=== PATIENT | male | born 1955 ===

== ENCOUNTER → 2023-07-28 | Emergency (ER) | payer OTHER ==
[~2023-07-28] MED LIST: FOLIC ACID 1 MG in NA CHLORIDE 0.9% 50 ML IV ONE; NA CHLORIDE 0.9% 1,000 ML ONE
--- OUTSIDE RECORDS SUMMARY | 2023-07-28 11:54 | XMS REPORT | Continuity of Care Document ---
Author Name Unknown Address [address] [place] [address] [address]. [address] [place] [address] [facility] Address [address] [facility] [address] [place] [address] Care Team Providers Care Supervisor [employer] Name Role Phone Ivett Ramachandran Attending Clinician Unavailab le Tejal Attending Clinician Unavail able Jenniffer Smalls Attending Clinician Unavailable Jenniffer Smalls Attending Clinician [phone] Tejal Admitting Clinician Unavail able Payers Payer Name Policy Type Policy Number Effective Date Expirati on Date Source [place]: [employer] [id number] 2018 00:00:00 [facility] [id number] 2020 00:00:00 Problems Condition Name Condition Details Condition Category Status Onset Date Resolution Date Last Treatment Date Treating Clinician Comments Source Chronic postoperat roderick pain Chronic Postoperat roderick Pain Problem Active 05-03 00:00: 00 [facility] Osteoarthr itis of left hip joint Osteoarthr itis of Left Hip Joint Problem Active 03-15 00:00: 00 [facility] Low back pain Low Back Pain Problem Active 03-14 00:00: 00 [facility] Pain of left hip joint Pain of Left Hip Joint Problem Active 03-14 00:00: 00 [facility] Pain in right hip joint Pain in Right Hip Joint Problem Active 02-09 00:00: 00 [facility] Pain of left knee joint Pain of Left Knee Joint Problem Active 02-09 00:00: 00 [facility] Pain of right knee joint Pain of Right Knee Joint Problem Active 02-09 00:00: 00 [facility] Allergies, Adverse Reactions, Alerts Allergy Name Allergy Type Status Severity Reaction(s) Onset Date Inactive Date Treating Clinician Comments Source No Known Allergie s DA Active U 02-09 00:00: 00 [facility] Medications Ordered Medication Name Filled Medication Name Start Date Stop Date Current Medication? Ordering Clinician Indication Dosage Frequency Signature (SIG) Comments Components Source amlodipine 5 mg tablet TAKE 1 TABLET BY MOUTH EVERY DAY amlodipine 5 mg tablet TAKE 1 TABLET BY MOUTH EVERY DAY No amlodipine 5 mg tablet TAKE 1 TABLET BY MOUTH EVERY DAY [facility] azithromyci n 250 mg tablet TAKE 2 TABLETS BY MOUTH FOR 1 DAY THEN TAKE 1 TABLET BY MOUTH DAILY FOR 4 DAYS azithromyci n 250 mg tablet TAKE 2 TABLETS BY MOUTH FOR 1 DAY THEN TAKE 1 TABLET BY MOUTH DAILY FOR 4 DAYS No azithromyc in 250 mg tablet TAKE 2 TABLETS BY MOUTH FOR 1 DAY THEN TAKE 1 TABLET BY MOUTH DAILY FOR 4 DAYS [facility] celecoxib 200 mg capsule TAKE 1 CAPSULE BY MOUTH EVERY DAY NEEDED celecoxib 200 mg capsule TAKE 1 CAPSULE BY MOUTH EVERY DAY NEEDED No celecoxib 200 mg capsule TAKE 1 CAPSULE BY MOUTH EVERY DAY NEEDED [facility] cephalexin 500 mg capsule TAKE 1 CAPSULE BY MOUTH EVERY DAY cephalexin 500 mg capsule TAKE 1 CAPSULE BY MOUTH EVERY DAY No cephalexin 500 mg capsule TAKE 1 CAPSULE BY MOUTH EVERY DAY [facility] irbesartan 300 mg tablet irbesartan 300 mg tablet No irbesartan 300 mg tablet [facility] meloxicam 15 mg tablet TAKE 1 TABLET BY MOUTH DAILY meloxicam 15 mg tablet TAKE 1 TABLET BY MOUTH DAILY No meloxicam 15 mg tablet TAKE 1 TABLET BY MOUTH DAILY [facility] methylpredn isolone 4 mg tablets in a dose pack FOLLOW PACKAGE DIRECTIONS methylpredn isolone 4 mg tablets in a dose pack FOLLOW PACKAGE DIRECTIONS No methylpred nisolone 4 mg tablets in a dose pack FOLLOW PACKAGE DIRECTIONS [facility] nystatin 100,000 unit/gram topical cream APPLY TOPICALLY TO THE AFFECTED AREA TWICE DAILY nystatin 100,000 unit/gram topical cream APPLY TOPICALLY TO THE AFFECTED AREA TWICE DAILY No nystatin 100,000 unit/gram topical cream APPLY TOPICALLY TO THE AFFECTED AREA TWICE DAILY [facility] rosuvastati n 20 mg tablet TAKE 1 TABLET BY MOUTH EVERY DAY rosuvastati n 20 mg tablet TAKE 1 TABLET BY MOUTH EVERY DAY No rosuvastat in 20 mg tablet TAKE 1 TABLET BY MOUTH EVERY DAY [facility] testosteron e cypionate 200 mg/mL intramuscul ar oil testosteron e cypionate 200 mg/mL intramuscul ar oil No testostero ne cypionate 200 mg/mL intramuscu lar oil [facility] tramadol 50 mg tablet TAKE 1 TABLET BY MOUTH THREE TIMES DAILY NEEDED tramadol 50 mg tablet TAKE 1 TABLET BY MOUTH THREE TIMES DAILY NEEDED No tramadol 50 mg tablet TAKE 1 TABLET BY MOUTH THREE TIMES DAILY NEEDED [facility] acetaminoph en 500 mg tablet Take 2 tablet(s) EVERY 8 HOURS by oral route. acetaminoph en 500 mg tablet Take 2 tablet(s) EVERY 8 HOURS by oral route. No acetaminop hen 500 mg tablet Take 2 tablet(s) EVERY 8 HOURS by oral route. [facility] amlodipine 5 mg tablet TAKE 1 TABLET BY MOUTH EVERY DAY amlodipine 5 mg tablet TAKE 1 TABLET BY MOUTH EVERY DAY No amlodipine 5 mg tablet TAKE 1 TABLET BY MOUTH EVERY DAY [facility] amoxicillin 875 mg-potassiu m clavulanate 125 mg tablet TAKE 1 TABLET BY MOUTH EVERY MORNING AND 1 TABLET EVERY EVENING FOR 7 DAYS amoxicillin 875 mg-potassiu m clavulanate 125 mg tablet TAKE 1 TABLET BY MOUTH EVERY MORNING AND 1 TABLET EVERY EVENING FOR 7 DAYS No amoxicilli n 875 mg-potassi um clavulanat e 125 mg tablet TAKE 1 TABLET BY MOUTH EVERY MORNING AND 1 TABLET EVERY EVENING FOR 7 DAYS [facility] aspirin 81 mg tablet,yrn yed release TAKE 1 TABLET BY MOUTH TWICE DAILY aspirin 81 mg tablet,yrn yed release TAKE 1 TABLET BY MOUTH TWICE DAILY No aspirin 81 mg tablet,del ayed release TAKE 1 TABLET BY MOUTH TWICE DAILY [facility] azelastine 137 mcg (0.1 %) nasal spray aerosol USE 1 SPRAY IN EACH NOSTRIL IN THE MORNING AND IN THE EVENING DIRECTED azelastine 137 mcg (0.1 %) nasal spray aerosol USE 1 SPRAY IN EACH NOSTRIL IN THE MORNING AND IN THE EVENING DIRECTED No azelastine 137 mcg (0.1 %) nasal spray aerosol USE 1 SPRAY IN EACH NOSTRIL IN THE MORNING AND IN THE EVENING DIRECTED [facility] azithromyci n 250 mg tablet TAKE 2 TABLET BY MOUTH ON DAY 1 THEN TAKE 1 TABLET BY MOUTH EVERY DAY FOR DAYS 2 -5 azithromyci n 250 mg tablet TAKE 2 TABLET BY MOUTH ON DAY 1 THEN TAKE 1 TABLET BY MOUTH EVERY DAY FOR DAYS 2 -5 No azithromyc in 250 mg tablet TAKE 2 TABLET BY MOUTH ON DAY 1 THEN TAKE 1 TABLET BY MOUTH EVERY DAY FOR DAYS 2 -5 [facility] benzonatate 100 mg capsule TAKE 2 CAPSULES BY MOUTH EVERY 8 HOURS NEEDED FOR COUGH benzonatate 100 mg capsule TAKE 2 CAPSULES BY MOUTH EVERY 8 HOURS NEEDED FOR COUGH No benzonatat e 100 mg capsule TAKE 2 CAPSULES BY MOUTH EVERY 8 HOURS NEEDED FOR COUGH [facility] benzonatate 200 mg capsule TAKE 1 CAPSULE BY MOUTH THREE TIMES DAILY NEEDED FOR COUGH benzonatate 200 mg capsule TAKE 1 CAPSULE BY MOUTH THREE TIMES DAILY NEEDED FOR COUGH No benzonatat e 200 mg capsule TAKE 1 CAPSULE BY MOUTH THREE TIMES DAILY NEEDED FOR COUGH [facility] celecoxib 200 mg capsule TAKE 1 CAPSULE BY MOUTH EVERY DAY NEEDED celecoxib 200 mg capsule TAKE 1 CAPSULE BY MOUTH EVERY DAY NEEDED No celecoxib 200 mg capsule TAKE 1 CAPSULE BY MOUTH EVERY DAY NEEDED [facility] cephalexin 500 mg capsule TAKE 1 CAPSULE BY MOUTH EVERY DAY cephalexin 500 mg capsule TAKE 1 CAPSULE BY MOUTH EVERY DAY No cephalexin 500 mg capsule TAKE 1 CAPSULE BY MOUTH EVERY DAY [facility] codeine 10 mg-guaifene sin 100 mg/5 mL oral liquid TAKE 5 ML BY MOUTH EVERY 6 HOURS NEEDED FOR COUGH codeine 10 mg-guaifene sin 100 mg/5 mL oral liquid TAKE 5 ML BY MOUTH EVERY 6 HOURS NEEDED FOR COUGH No codeine 10 mg-guaifen esin 100 mg/5 mL oral liquid TAKE 5 ML BY MOUTH EVERY 6 HOURS NEEDED FOR COUGH [facility] doxycycline hyclate 100 mg capsule Take 1 capsule twice a day by oral route for 7 days. doxycycline hyclate 100 mg capsule Take 1 capsule twice a day by oral route for 7 days. No doxycyclin e hyclate 100 mg capsule Take 1 capsule twice a day by oral route for 7 days. [facility] fluticasone propionate 50 mcg/actuati on nasal spray,suspe nsion SHAKE LIQUID AND USE 2 SPRAYS IN EACH NOSTRIL IN THE MORNING fluticasone propionate 50 mcg/actuati on nasal spray,suspe nsion SHAKE LIQUID AND USE 2 SPRAYS IN EACH NOSTRIL IN THE MORNING No fluticason e propionate 50 mcg/actuat ion nasal spray,susp ension SHAKE LIQUID AND USE 2 SPRAYS IN EACH NOSTRIL IN THE MORNING [facility] irbesartan 300 mg tablet TAKE 1 TABLET BY MOUTH EVERY DAY irbesartan 300 mg tablet TAKE 1 TABLET BY MOUTH EVERY DAY No irbesartan 300 mg tablet TAKE 1 TABLET BY MOUTH EVERY DAY [facility] meloxicam 15 mg tablet Take 1 tablet every day by oral route with meals for 30 days. meloxicam 15 mg tablet Take 1 tablet every day by oral route with meals for 30 days. No meloxicam 15 mg tablet Take 1 tablet every day by oral route with meals for 30 days. [facility] methylpredn isolone 4 mg tablets in a dose pack FOLLOW PACKAGE DIRECTIONS methylpredn isolone 4 mg tablets in a dose pack FOLLOW PACKAGE DIRECTIONS No methylpred nisolone 4 mg tablets in a dose pack FOLLOW PACKAGE DIRECTIONS [facility] nystatin 100,000 unit/gram topical cream APPLY TOPICALLY TO THE AFFECTED AREA TWICE DAILY nystatin 100,000 unit/gram topical cream APPLY TOPICALLY TO THE AFFECTED AREA TWICE DAILY No nystatin 100,000 unit/gram topical cream APPLY TOPICALLY TO THE AFFECTED AREA TWICE DAILY [facility] oxycodone 5 mg tablet Take 1 tablet(s) EVERY 6-8 HOURS as needed for severe pain by oral route oxycodone 5 mg tablet Take 1 tablet(s) EVERY 6-8 HOURS as needed for severe pain by oral route No oxycodone 5 mg tablet Take 1 tablet(s) EVERY 6-8 HOURS as needed for severe pain by oral route [facility] polymyxin B sulfate 10,000 unit-trimet hoprim 1 mg/mL eye drops INSTILL 1 DROP IN BOTH EYES THREE TIMES DAILY FOR 7 DAYS polymyxin B sulfate 10,000 unit-trimet hoprim 1 mg/mL eye drops INSTILL 1 DROP IN BOTH EYES THREE TIMES DAILY FOR 7 DAYS No polymyxin B sulfate 10,000 unit-trime thoprim 1 mg/mL eye drops INSTILL 1 DROP IN BOTH EYES THREE TIMES DAILY FOR 7 DAYS [facility] prednisone 20 mg tablet TAKE 2 TABLETS BY MOUTH IN THE MORNING FOR 5 DAYS prednisone 20 mg tablet TAKE 2 TABLETS BY MOUTH IN THE MORNING FOR 5 DAYS No prednisone 20 mg tablet TAKE 2 TABLETS BY MOUTH IN THE MORNING FOR 5 DAYS [facility] promethazin e-DM 6.25 mg-15 mg/5 mL oral syrup TAKE 5 ML BY MOUTH FOUR TIMES DAILY NEEDED FOR COUGH promethazin e-DM 6.25 mg-15 mg/5 mL oral syrup TAKE 5 ML BY MOUTH FOUR TIMES DAILY NEEDED FOR COUGH No promethazi ne-DM 6.25 mg-15 mg/5 mL oral syrup TAKE 5 ML BY MOUTH FOUR TIMES DAILY NEEDED FOR COUGH [facility] rosuvastati n 20 mg tablet TAKE 1 TABLET BY MOUTH EVERY DAY rosuvastati n 20 mg tablet TAKE 1 TABLET BY MOUTH EVERY DAY No rosuvastat in 20 mg tablet TAKE 1 TABLET BY MOUTH EVERY DAY [facility] rosuvastati n 40 mg tablet rosuvastati n 40 mg tablet No rosuvastat in 40 mg tablet [facility] testosteron e cypionate 200 mg/mL intramuscul ar oil testosteron e cypionate 200 mg/mL intramuscul ar oil No testostero ne cypionate 200 mg/mL intramuscu lar oil [facility] tizanidine 2 mg tablet TAKE 1 TABLET BY MOUTH EVERY 6 TO 8 HOURS NEEDED tizanidine 2 mg tablet TAKE 1 TABLET BY MOUTH EVERY 6 TO 8 HOURS NEEDED No tizanidine 2 mg tablet TAKE 1 TABLET BY MOUTH EVERY 6 TO 8 HOURS NEEDED [facility] tramadol 50 mg tablet Take 1 tablet every 6 hours by oral route as needed for 7 days. tramadol 50 mg tablet Take 1 tablet every 6 hours by oral route as needed for 7 days. No tramadol 50 mg tablet Take 1 tablet every 6 hours by oral route as needed for 7 days. [facility] Vital Signs Vital Name Observation Time Observation Value Comments S ource BMI (Body Mass Index) 2023-06-21 00:00:00 30.7 kg/m2 [facility] Height 2023-06-21 00:00:00 [facility] Weight 2023-06-21 00:00:00 220 [lb_av] [facility] Height 2022-02-09 00:00:00 71 [facility] BMI (Body Mass Index) 2022-02-09 00:00:00 29.6 kg/m2 [facility] Body Weight 2022-02-09 00:00:00 212 [lb_av] [facility] Procedures Procedure Date / Time Performed Performing Clinician Source XR, hip + pelvis, unilateral, 2 or 3 view 2023-06-21 00:00:00 [facility] XR, hip + pelvis, unilateral, 2 or 3 view 2023-05-22 00:00:00 [facility] Total Replacement of Left Hip Joint 2023-05-04 00:00:00 [facility] XR, hip + pelvis, unilateral, 2 or 3 view 2022-02-09 00:00:00 [facility] RADEX PELVIS 1/2 VIEWS 2022-02-09 00:00:00 [facility] Plan of Care Planned Activity Planned Date Details Comments Source Instructions [facility] Encounters Start Date/Time End Date/Time Encounter Type Admission Type Attending Clinicians Care Facility Care Department Encounter ID Source 2021-08-31 14:28:20 Outpatient Ivett Ramachand[facility] [id number] [facility] 2023-06-21 00:00:00 2023-06-21 00:00:00 Outpatient FOG_Pillo P[place] AO AO [id number] [facility] 2023-06-21 00:00:00 2023-06-21 00:00:00 Jenniffer Smalls MD: [address] [place] [address] , Ph. [phone] [facility] [place] [facility] [id number] [facility] 2023-05-22 00:00:00 2023-05-22 00:00:00 Jenniffer Smalls MD: [address] [place] [address] , Ph. [phone] [facility] [place] [facility] [place] [id number] [facility] 2023-04-30 00:00:00 2023-04-30 00:00:00 Outpatient FOG_Pillo Pagan [facility] A[facility] [id number] [facility] 2023-04-30 00:00:00 2023-04-30 00:00:00 Outpatient FOGAgustín Pagan [facility] A[facility] [id number] [facility] 2023-04-30 00:00:00 2023-04-30 00:00:00 Outpatient FOGAgustín Pagan [facility] A[facility]M [id number] [facility] 2023-04-30 00:00:00 2023-04-30 00:00:00 Outpatient FOG_Pillo Pagan [facility] A[facility] [id number] [facility] 2023-04-30 00:00:00 2023-04-30 00:00:00 Outpatient FOG_St[facility]_ Gregor_MD [facility]M AOSM [id number] [facility] 2023-04-30 00:00:00 2023-04-30 00:00:00 Outpatient [facility]OG[facility]_ Gregor_ [facility]M A[facility] [id number] [facility] 2023-04-30 00:00:00 2023-04-30 00:00:00 Outpatient [facility]_ Gregor_ [facility]M A[facility] [id number] [facility] 2023-04-30 00:00:00 2023-04-30 00:00:00 Outpatient FOG_[facility]_ Jamshid_ A[facility]M AOSM [id number] [facility] 2023-04-30 00:00:00 2023-04-30 00:00:00 Outpatient [facility]_ Oliveror_ AOSM AOSM [id number] [facility] 2023-03-15 16:53:00 2023-03-15 16:53:00 Outpatient Jenniffer Smalls [facility] [id number] [address] [place] [address] 2023-03-15 00:00:00 2023-03-15 00:00:00 Outpatient FOG_[facility]_ Jamshid_ AOSM AOSM [id number] [facility] 2022-02-09 03:13:00 2022-02-09 03:13:00 Outpatient FOG_Stocks_ Oliveror_ AOSM AOSM [id number] [facility] 2022-02-09 00:00:00 2022-02-09 00:00:00 Outpatient FOG_[facility]ocks_ Gregor_ A[facility]M AOSM [id number] [facility] 2022-02-09 00:00:00 2022-02-09 00:00:00 Outpatient FOG_Pillo Pagan AOSM AOSM [id number] [facility] 2022-02-09 00:00:00 2022-02-09 00:00:00 Jenniffer Smalls MD: [address] [place] [address] , Ph. [phone] [facility] [place] [facility] [id number] [facility] 2022-02-09 00:00:00 2022-02-09 00:00:00 Outpatient Jenniffer Smalls [facility] AO [id number] 2022-02-08 06:40:00 2022-02-08 06:40:00 Outpatient FOG_Pillo Pagan AOSM AOSM [id number] [facility] 2022-02-03 10:57:00 2022-02-03 10:57:00 Outpatient FOG_Pillo Pagna AOSM AOSM [id number] [facility] Results Test Description Test Time Test Comments Results Result Co mments Source
[2023-07-28 12:21] LABS: Absolute Lymphocytes (CBC) 2.8 K/uL (0.7-4.9); Hematocrit 47.5 % (39.6-49.0); Lymphocytes % 32.2 % (15.3-44.8); MCV 91.6 fL (80-100); MPV 7.8 fL (7.6-11.3); Platelets 190 thou/uL (152-406); RBC Red Blood Cell Count 5.18 M/uL (4.33-5.43)
[2023-07-28 12:32] LABS: Protime INR 1.05
[2023-07-28 12:39] LABS: ALT/SGPT 38 U/L (16-61); AST/SGOT 27 U/L (15-37); Albumin 3.7 g/dL (3.4-5.0); Alkaline Phosphatase 109 U/L (45-117); BUN Blood Urea Nitrogen 14 mg/dL (7-18); Bicarbonate 31 mEq/L (21-32); Bilirubin Direct 0.2 mg/dL (0-0.2); Bilirubin Indirect, Calculated 0.4 mg/dL (0.2-0.8); Bilirubin Total 0.6 mg/dL (0.2-1.0); Glomerular Filtration Rate 82 ml/min (=/>90); Glucose Level 110 mg/dL (74-106); Magnesium 2.2 mg/dL (1.6-2.4); NT PRO-BNP 57 pg/mL (<125); Potassium 4.1 mEq/L (3.5-5.1); Sodium Level 138 mEq/L (136-145); Troponin High Sensitivity 14.1 pg/mL (<58.9)
[2023-07-28 12:44] LABS: C-Reactive Protein < 2.90 mg/L (<3.00)
--- NOTE | 2023-07-28 13:23 | RAD REPORT ---
EXAM DESCRIPTION: Des Single View07/28/2023 12:24 pm CLINICAL HISTORY: Chest pain COMPARISON: 2011 FINDINGS: The lungs appear clear of acute infiltrate. The heart is mildly to moderately enlarged Postsurgical changes involve the chest
--- NOTE | 2023-07-28 13:54 | RAD REPORT ---
EXAM DESCRIPTION: CT - Head C Spine Mpr Wo Con - 07/28/2023 1:22 pm CLINICAL HISTORY: Numbness and dizziness COMPARISON: None. TECHNIQUE: Computed axial tomography of the head and cervical spine was obtained. Sagittal and coronal reconstruction was performed. All CT scans are performed using dose optimization technique as appropriate and may include automated exposure control or mA/KV adjustment according to patient size. FINDINGS: An intracranial bleed is not seen. The ventricles are normal in caliber. No significant hypodensity within the brain. An extra-axial fluid collection is not noted. Fluid within the maxillary and ethmoid sinuses may indicate acute sinusitis A cervical fracture is not visualized. No dislocation is noted. Spondylosis C3-4. Possible left lateral disc herniation. There appears to be soft tissue in the left neural foramina which is narrowed. Spondylosis C4-5 resulting in moderate narrowing of the right neural foramina Anterior fusion C5 through C7 by plate, screws and bone plugs. Spondylosis C5-6 resulting in moderate narrowing of the neural foramina bilaterally IMPRESSION: No acute intracranial abnormality is seen. Fluid within the maxillary and ethmoid sinuses may indicate acute sinusitis A cervical fracture is not visualized. Spondylosis C3-4. Possible left lateral disc herniation. There appears to be soft tissue in the left neural foramina which is narrowed. It is recommended that the patient have an MRI cervical spine with contrast for further evaluation Spondylosis C4-5 resulting in moderate right foraminal stenosis Spondylosis C5-6 resulting in moderate bilateral foraminal stenosis
[2023-07-28 14:04] LABS: Specific Gravity 1.023 (1.005-1.030); Urine Bacteria None Seen /HPF (<20); Urine Bilirubin NEGATIVE (Negative); Urine Blood Negative (Negative); Urine Clarity Clear (Clear); Urine Color Light-Yellow (Yellow); Urine Glucose NEGATIVE (Negative); Urine Protein NEGATIVE (Negative); Urine RBC <5 /HPF (None Seen); Urine Urobilinogen Normal (Normal)
--- NOTE | 2023-07-28 14:05 | RAD REPORT ---
EXAM DESCRIPTION: Anna Angio07/28/2023 1:23 pm CLINICAL HISTORY: Numbness COMPARISON: None TECHNIQUE: 100 cc Isovue [address] angiogram of the neck was obtained. 3D MIPS reconstruction performed. All CT scans are performed using dose optimization technique as appropriate and may include automated exposure control or mA/KV adjustment according to patient size. FINDINGS: Mild plaque is present within common carotid, internal carotid and external carotid arteri es bilaterally Portions of the proximal vertebral arteries are not well opacified. Limited evaluation left subclavian artery No dissection is seen. No high-grade stenosis IMPRESSION: Mild plaque within the carotid and vertebral arteries Nascet crieria Mild stenosis 0 to 49 % Moderate stenosis 50-69% Severe stenosis 70-99%
--- NOTE | 2023-07-28 14:05 | RAD REPORT ---
EXAM DESCRIPTION: CTHead angio07/28/2023 1:24 pm CLINICAL HISTORY: Numbness COMPARISON: None TECHNIQUE: 100 cc Isovue [address] angiogram of the head was obtained. 3D MIPS reconstruction performed. All CT scans are performed using dose optimization technique as appropriate and may include automated exposure control or mA/KV adjustment according to patient size. FINDINGS: The basilar, anterior cerebral, middle cerebral and posterior cerebral arteries do not dem onstrate a significant stenosis Mild calcified plaque distal internal carotid arteries An aneurysm is not seen origin right posterior cerebral artery No large vessel occlusion IMPRESSION: No significant abnormality is displayed
--- NOTE | 2023-07-28 15:21 | EDPHYS ---
Physician Documentation [facility] Name: Efrain Singh Age: 68 yrs Sex: Male : 1955 Arrival Date: 07/28/2023 Time: 11:50 Bed 3 Private MD: ED Physician Ashwin Giang HPI: 07/28 15:11 This 68 yrs old Male presents to ER via Ambulatory with complaints of samy Numbness Of Arm, Tingling. 15:11 The patient or guardian complains of decreased range of motion, pain, that is acute. samy The complaints affect the anterior aspect of left shoulder, left bicep, posterior aspect of left shoulder and left tricep. Context: The problem was sustained at an unknown location. Onset: The symptoms/episode began/occurred 3 day(s) ago. Treatment prior to arrival includes: no previous treatment. Modifying factors: The symptoms are alleviated by remaining still. Associated signs and symptoms: Pertinent positives: tingling, of the left arm. Severity of symptoms: At their worst the symptoms were moderate, in the emergency department the symptoms are unchanged. The patient has experienced similar episodes in the past, multiple times. Historical: - Allergies: 12:07 No Known Allergies; jj7 - PMHx: 12:07 Hypertensive disorder; HIGH CHOLESTEROL; jj7 - PSHx: 12:07 NECK; BACK; OPEN HEART SX; Repair of inguinal hernia; LEFT HIP REPLACMENT; jj7 - Immunization history:: Adult Immunizations up to date. - Social history:: Smoking status: Patient/guardian denies using tobacco, the patient reports quitting approximately 35 years ago. - Family history:: not pertinent. ROS: 15:11 Constitutional: Negative for fever, chills, and weight loss, Eyes: Negative for injury, samy pain, redness, and discharge, ENT: Negative for injury, pain, and discharge, Cardiovascular: Negative for chest pain, palpitations, and edema, Respiratory: Negative for shortness of breath, cough, wheezing, and pleuritic chest pain, Abdomen/GI: Negative for abdominal pain, nausea, vomiting, diarrhea, and constipation, Back: Negative for injury and pain, : Negative for injury, bleeding, discharge, and swelling, MS/Extremity: Negative for injury and deformity, Skin: Negative for injury, rash, and discoloration, Neuro: Negative for headache, weakness, numbness, tingling, and seizure, Psych: Negative for depression, anxiety, suicide ideation, homicidal ideation, and hallucinations, Allergy/Immunology: Negative for hives, rash, and allergies, Endocrine: Negative for neck swelling, polydipsia, polyuria, polyphagia, and marked weight changes, Hematologic/Lymphatic: Negative for swollen nodes, abnormal bleeding, and unusual bruising, 15:11 Neck: Positive for pain with movement, swelling, tenderness, 15:11 Cardiovascular: Negative for chest pain, 15:11 Respiratory: Negative for cough, dyspnea on exertion, pleurisy, shortness of breath, sputum production, wheezing, acute changes, 15:11 MS/extremity: Positive for pain, tingling, of the left arm, 15:11 Neuro: Negative for altered mental status, dizziness, gait disturbance, headache, numbness, seizure activity, speech changes, syncope, near syncope, tinnitus, tremor, visual changes, weakness, acute changes, Exam: 15:11 Constitutional: This is a well developed, well nourished patient who is awake, alert, samy and in no acute distress. Head/Face: Normocephalic, atraumatic. Eyes: Pupils equal round and reactive to light, extra-ocular motions intact. Lids and lashes normal. Conjunctiva and sclera are non-icteric and not injected. Cornea within normal limits. Periorbital areas with no swelling, redness, or edema. ENT: Nares patent. No nasal discharge, no septal abnormalities noted. Tympanic membranes are normal and external auditory canals are clear. Oropharynx with no redness, swelling, or masses, exudates, or evidence of obstruction, uvula midline. Mucous membranes moist. Chest/axilla: Normal chest wall appearance and motion. Nontender with no deformity. No lesions are appreciated. Cardiovascular: Regular rate and rhythm with a normal S1 and S2. No gallops, murmurs, or rubs. Normal PMI, no JVD. No pulse deficits. Respiratory: Lungs have equal breath sounds bilaterally, clear to auscultation and percussion. No rales, rhonchi or wheezes noted. No increased work of breathing, no retractions or nasal flaring. Abdomen/GI: Soft, non-tender, with normal bowel sounds. No distension or tympany. No guarding or rebound. No evidence of tenderness throughout. Back: No spinal tenderness. No costovertebral tenderness. Full range of motion. Male : Normal genitalia with no discharge or lesions. Skin: Warm, dry with normal turgor. Normal color with no rashes, no lesions, and no evidence of cellulitis. MS/ Extremity: Pulses equal, no cyanosis. Neurovascular intact. Full, normal range of motion. Neuro: Awake and alert, GCS 15, oriented to person, place, time, and situation. Cranial nerves II-XII grossly intact. Motor strength 5/5 in all extremities. Sensory grossly intact. Cerebellar exam normal. Normal gait. Psych: Awake, alert, with orientation to person, place and time. Behavior, mood, and affect are within normal limits. 15:11 Neck: External neck: is normal, C-spine: appears grossly normal, no acute changes, Thyroid: appears normal, Trachea: is midline with no obvious abnormalities, no acute changes, ROM/movement: is normal, no acute changes, Lymph nodes: no appreciated lymphadenopathy, 15:11 ECG was reviewed by the Attending Physician. Vital Signs: 12:06 BP 148 / 77; Pulse 89; Resp 17; Temp 98.2; Pulse Ox 98% ; Weight 99.34 kg; Height 5 ft. jj7 10 in. ; Pain 0/10; 12:45 BP 127 / 80; Pulse 85; Resp 17; Pulse Ox 99% on R/A; Pain 0/10; hb 13:48 BP 124 / 76; Pulse 91; Resp 18; Pulse Ox 99% ; hb 14:30 BP 127 / 76; Pulse 83; Resp 18 S; Pulse Ox 95% on R/A; jw7 15:30 BP 126 / 78; Pulse 83; Resp 22 S; Pulse Ox 95% on R/A; jw7 12:06 Body Mass Index 31.42 (99.34 kg, 177.8 cm) jj7 12:06 Pain Scale: Adult jj7 12:45 Pain Scale: Adult hb NIH Stroke Scale Scores: 12:15 NIHSS Score: 0 hb 15:11 NIHSS Score: 0 samy MDM: 12:05 Patient medically screened. [facility] 15:15 Differential diagnosis: contusion, abrasion, tendonitis. Data reviewed: vital signs, [facility] nurses notes, lab test result(s), EKG, radiologic studies, CT scan, plain films. Consideration of Admission/Observation Escalation of care including admission/observation considered. I considered the following discharge prescriptions or medication management in the emergency department Medications were administered in the Emergency Department. See MAR. Independent interpretation of the following test(s) in the Emergency Department EKG: See my EKG interpretation above. Test considered but Not performed: MRI: [place] MRI BRAIN, CERVICAL SPINE. Historians other than the Patient: Spouse/Significant Other: AND DAUGHTER. Care significantly affected by the following chronic conditions: Hypertension, Obesity, HIGH CHOLESTEROL. Counseling: I had a detailed discussion with the patient and/or guardian regarding the historical points, exam findings, and any diagnostic results supporting the discharge/admit diagnosis, lab results, radiology results, the need for outpatient follow up, a assembler bicycle, a neurologist, a neurosurgeon. 07/28 12:07 Order name: Basic Metabolic Panel; Complete Time: 13:37 [facility] 07/28 12:07 Order name: CBC with Diff; Complete Time: 13:37 [facility] 07/28 12:07 Order name: LFT's; Complete Time: 13:37 [facility] 07/28 12:07 Order name: Magnesium; Complete Time: 13:37 [facility] 07/28 12:07 Order name: NT PRO-BNP; Complete Time: 13:37 samy 07/28 12:07 Order name: PT-INR; Complete Time: 13:37 samy 07/28 12:07 Order name: Troponin HS; Complete Time: 13:37 [facility] 07/28 12:07 Order name: CRP; Complete Time: 13:37 [facility] 07/28 12:07 Order name: Urinalysis w/ reflexes; Complete Time: 14:15 [facility] 07/28 12:07 Order name: XRAY Chest (1 view); Complete Time: 13:37 [facility] 07/28 12:07 Order name: CT Head C Spine; Complete Time: 14:15 07/28 12:07 Order name: CT Head Angio; Complete Time: 14:15 07/28 12:07 Order name: CT Neck Angio; Complete Time: 14:15 [facility] 07/28 12:07 Order name: EKG; Complete Time: 12:08 samy 07/28 12:07 Order name: Cardiac monitoring; Complete Time: 12:16 07/28 12:07 Order name: EKG - Nurse/Tech; Complete Time: 12:16 07/28 12:07 Order name: IV Saline Lock; Complete Time: 12:16 samy 07/28 12:07 Order name: Labs collected and sent; Complete Time: 12:16 samy 07/28 12:07 Order name: O2 Per Protocol; Complete Time: 12:16 samy 07/28 12:07 Order name: O2 Sat Monitoring; Complete Time: 12:16 [facility] EC:11 Rate is 83 beats/min. Rhythm is regular. QRS Maljamar is Normal. AL interval is normal. QRS samy interval is normal. QT interval is normal. No Q waves. T waves are Normal. No ST changes noted. Clinical impression: Normal ECG and No evidence of ischemia. Interpreted by me. Reviewed by me. Administered Medications: :16 Drug: NS 0.9% IV 1000 ml IV at 1 bolus Per protocol; 1000 mL bolus Route: IV; Rate: 1 jl7 bolus; Site: left antecubital; 15:54 Follow up: Response: No adverse reaction; IV Status: Completed infusion; IV Intake: jw7 1000ml 13:38 Drug: foLIC Acid IVPB 1 mg IVPB once Route: IVPB; Site: left antecubital; hb 15:53 Follow up: Response: No adverse reaction; IV Status: Completed infusion jw7 15:54 Not Given (Patient Refused): [id number] mg PO once jw7 15:54 Not Given (Patient Refused): Decadron - mg IVP once jw7 15:54 Not Given (Patient Refused): [id number] mg IVP once jw7 Disposition Summary: 07/28/23 15:20 Discharge Ordered Notes: Location: Home samy Problem: new samy Symptoms: have improved samy Condition: Stable samy Diagnosis - Paresthesia of skin samy - Cervical disc disorder with radiculopathy, unspecified cervical region samy - Obesity, unspecified samy - Essential (primary) hypertension samy Followup: samy - With: Private Physician - When: 2 - 3 days - Reason: Recheck today's complaints, Continuance of care, Re-evaluation by your physician Followup: samy - With: Olu Herrera MD - When: 2 - 3 days - Reason: Recheck today's complaints, Continuance of care, Re-evaluation by your physician Followup: samy - With: Arun Diaz MD - When: 2 - 3 days - Reason: Recheck today's complaints, Continuance of care, Re-evaluation by your physician Followup: samy - With: Leeroy Gilbert MD - When: 2 - 3 days - Reason: Recheck today's complaints, Continuance of care, Re-evaluation by your physician Discharge Instructions: - Discharge Summary Sheet samy - Cervical Radiculopathy samy - Herniated Disk samy - Hypertension, Adult samy - Obesity, Adult samy - Paresthesia samy - Hypertension, Adult, [id number] samy - Aspirin and Your Heart samy - Paresthesia, [id number] samy - Managing Your Hypertension [facility] Forms: - Medication Reconciliation Form [facility] - Thank You Letter [facility] - Antibiotic Education samy - Prescription Opioid Use samy - Patient Portal Instructions [facility] - Leadership Thank You Letter [facility] Prescriptions: - acetaminophen-codeine 300-30 mg Oral tablet - take 2 tablet ORAL route every 6 hours; 20 tablet; Refills: 0, Product samy Selection Permitted - dexamethasone 2 mg Oral tablet - take 1 tablet ORAL route every 12 hours; 10 tablet; Refills: 0, Product samy Selection Permitted - diclofenac sodium 50 mg Oral tablet, delayed release (enteric coated) - take 1 tablet ORAL route every 8 hours as needed for pain; 30 tablet; Refills: samy 0, Product Selection Permitted - Plavix 75 mg Oral Tablet - take 1 tablet ORAL route once daily; 20 tablet; Refills: 0, Product Selection [facility] Permitted - Folic Acid 1 mg Oral Tablet - take 1 tablet ORAL route once daily; 30 tablet; Refills: 0, Product Selection [facility] Permitted - Cyclobenzaprine 5 mg Oral Tablet - take 1 tablet ORAL route 3 times per day As needed; 15 tablet; Refills: 0, samy Product Selection Permitted NIH Stroke Scale - NIH Stroke Score Date: 07/28/2023 Time: 12:15 Total Score = 0 10. Dysarthria (speech clarity - read or repeat words) - 0(Normal) 11. Extinction and Inattention (visual/tactile/auditory/spatial/personal) - 0(No abnormality) 1a. Level of Consciousness (LOC) - 0(Alert) 1b. Level of Consciousness (LOC) (Month \T\ Age) - 0(Both) 1c. LOC Commands (Open \T\ Closes Eyes/Stock Worker And Deliverer) - 0(Both) 2. Best Gaze (Lateral Gaze Paresis) - 0(Normal) 3. Visual Field Loss - 0(No visual loss) 4. Facial Palsy - 0(Normal) 5a. Left Arm: Motor (10-second hold) - 0(No drift) 5b. Right Arm: Motor (10-second hold) - 0(No drift) 6a. Left Leg: Motor (5-second hold - always test supine) - 0(No drift) 6b. Right Leg: Motor (5-second hold - always test supine) - 0(No drift) 7. Limb Ataxia (finger/nose \T\ heel/tobin - test with eyes open) - 0(Absent) 8. Sensory Loss (pinprick arms/legs/face) - 0(Normal) 9. Best Language: Aphasia (description/naming/reading) - 0(No aphasia) Initials: NIH Stroke Scale - NIH Stroke Score Date: 07/28/2023 Time: 15:11 Total Score = 0 10. Dysarthria (speech clarity - read or repeat words) - 0(Normal) 11. Extinction and Inattention (visual/tactile/auditory/spatial/personal) - 0(No abnormality) 1a. Level of Consciousness (LOC) - 0(Alert) 1b. Level of Consciousness (LOC) (Month \T\ Age) - 0(Both) 1c. LOC Commands (Open \T\ Closes Eyes/Stock Worker And Deliverer) - 0(Both) 2. Best Gaze (Lateral Gaze Paresis) - 0(Normal) 3. Visual Field Loss - 0(No visual loss) 4. Facial Palsy - 0(Normal) 5a. Left Arm: Motor (10-second hold) - 0(No drift) 5b. Right Arm: Motor (10-second hold) - 0(No drift) 6a. Left Leg: Motor (5-second hold - always test supine) - 0(No drift) 6b. Right Leg: Motor (5-second hold - always test supine) - 0(No drift) 7. Limb Ataxia (finger/nose \T\ heel/tobin - test with eyes open) - 0(Absent) 8. Sensory Loss (pinprick arms/legs/face) - 0(Normal) 9. Best Language: Aphasia (description/naming/reading) - 0(No aphasia) Initials: samy Signatures: Dispatcher [employer] Ashwin Roe MD MD cha Baxter, Heather, RN RN hb Leal, Jahala, RN RN jl7 Michelle Purvis RN RN jj7 Waits, Lily RN jw7
--- NOTE | 2023-07-28 15:21 | ER ---
Nurse's Notes [facility] Name: Efrain Singh Age: 68 yrs Sex: Male : 1955 Arrival Date: 07/28/2023 Time: 11:50 Bed 3 Private MD: Diagnosis: Paresthesia of skin;Cervical disc disorder with radiculopathy, unspecified cervical region;Obesity, unspecified;Essential (primary) hypertension Presentation: 07/28 12:06 Chief complaint: Patient states: TINGLING IN LEFT SHOULDER THAT RADIATES DOWN ARMS X2 jj7 DAYS. Coronavirus screen: At this time, the client does not indicate any symptoms associated with coronavirus-19. Ebola Screen: No symptoms or risks identified at this time. Initial Sepsis Screen: Does the patient meet any 2 criteria? No. Patient's initial sepsis screen is negative. Does the patient have a suspected source of infection? No. Patient's initial sepsis screen is negative. Risk Assessment: Do you want to hurt yourself or someone else? Patient reports no desire to harm self or others. 12:06 Method Of Arrival: Ambulatory jj7 12:06 Acuity: MONTY 3 jj7 14:00 Onset of symptoms was July 26, 2023. jw7 Triage Assessment: 12:07 General: Appears in no apparent distress. comfortable, Behavior is calm, cooperative, jj7 appropriate for age. Pain: Denies pain. Historical: - Allergies: 12:07 No Known Allergies; jj7 - PMHx: 12:07 Hypertensive disorder; HIGH CHOLESTEROL; jj7 - PSHx: 12:07 NECK; BACK; OPEN HEART SX; Repair of inguinal hernia; LEFT HIP REPLACMENT; jj7 - Immunization history:: Adult Immunizations up to date. - Social history:: Smoking status: Patient/guardian denies using tobacco, the patient reports quitting approximately 35 years ago. - Family history:: not pertinent. Screenin:09 [facility] ED Fall Risk Assessment (Adult) History of falling in the last 3 months, jj7 including since admission No falls in past 3 months (0 pts) Confusion or Disorientation No (0 pts) Intoxicated or Sedated No (0 pts) Impaired Gait No (0 pts) Mobility Assist Device Used No (0 pt) Altered Elimination No (0 pt) Score/Fall Risk Level 0 - 2 = Low Risk Oriented to surroundings, Maintained a safe environment, Educated pt \T\ family on fall prevention, incl call for assistance when getting out of bed. Abuse screen: Denies threats or abuse. Nutritional screening: No deficits noted. Tuberculosis screening: No symptoms or risk factors identified. 12:16 [place] Swallow Protocol Exclusion Criteria: Exclusion Criteria Result: Proceed Brief hb Cognitive Screen What is your name? Normal, Where are you right now? Normal, What year is it? Normal. Oral Mechanism Examination Oral Mechanism Result: Normal. 3 oz Water Swallow Challenge: Pt able to drink all water without stopping, coughing, choking or throat clearing: Yes Result: PASS. Assessment: 12:30 General: Appears in no apparent distress. Behavior is calm, cooperative. Pain: Denies hb pain. Neuro: Level of Consciousness is awake, alert, obeys commands, Oriented to person, place, time, situation. Cardiovascular: Patient's skin is warm and dry. Respiratory: Respiratory effort is even, unlabored, Respiratory pattern is regular, symmetrical. GI: No signs and/or symptoms were reported involving the gastrointestinal system. : No signs and/or symptoms were reported regarding the genitourinary system. EENT: No signs and/or symptoms were reported regarding the EENT system. Derm: Skin is pink, warm \T\ dry. Musculoskeletal: No signs and/or symptoms reported regarding the musculoskeletal system. 13:26 Reassessment: Patient appears in no apparent distress at this time. Patient and/or hb family updated on plan of care and expected duration. Pain level reassessed. Patient is alert, oriented x 3, equal unlabored respirations, skin warm/dry/pink. 14:30 Reassessment: Patient appears in no apparent distress at this time. No changes from jw7 previously documented assessment. Patient and/or family updated on plan of care and expected duration. Pain level reassessed. Patient is alert, oriented x 3, equal unlabored respirations, skin warm/dry/pink. 15:32 Reassessment: Patient appears in no apparent distress at this time. Patient and/or jw7 family updated on plan of care and expected duration. Pain level reassessed. Patient is alert, oriented x 3, equal unlabored respirations, skin warm/dry/pink. Vital Signs: 12:06 BP 148 / 77; Pulse 89; Resp 17; Temp 98.2; Pulse Ox 98% ; Weight 99.34 kg; Height 5 ft. jj7 10 in. ; Pain 0/10; 12:45 BP 127 / 80; Pulse 85; Resp 17; Pulse Ox 99% on R/A; Pain 0/10; hb 13:48 BP 124 / 76; Pulse 91; Resp 18; Pulse Ox 99% ; hb 14:30 BP 127 / 76; Pulse 83; Resp 18 S; Pulse Ox 95% on R/A; jw7 15:30 BP 126 / 78; Pulse 83; Resp 22 S; Pulse Ox 95% on R/A; jw7 12:06 Body Mass Index 31.42 (99.34 kg, 177.8 cm) j7 12:06 Pain Scale: Adult j7 12:45 Pain Scale: Adult NIH Stroke Scale Scores: 12:15 NIHSS Score: 0 hb 15:11 NIHSS Score: 0 samy ED Course: 11:54 Patient arrived in ED. ts1 12:02 Tiffany Caceres, KIRILL is Primary Nurse. jl7 12:05 Ashwin Giang MD is Attending Physician. samy 12:07 Triage completed. j7 12:07 Arm band placed on right wrist. Patient placed in an exam room, on a stretcher, on [facility] special delivery mail carrier, on pulse oximetry. 12:09 Patient has correct armband on for positive identification. Bed in low position. Call j light in reach. Adult w/ patient. 12:15 Inserted saline lock: 20 gauge in right antecubital area, using aseptic technique. hb Blood collected. 12:25 XRAY Chest (1 view) In Process Unspecified. EDMS 13:24 CT Head C Spine In Process Unspecified. EDMS 13:24 CT Head Angio In Process Unspecified. EDMS 13:24 CT Neck Angio In Process Unspecified. EDMS 13:50 Urinalysis w/ reflexes Sent. hb 15:18 Olu Herrera MD is Referral Physician. samy 15:18 Arun Diaz MD is Referral Physician. samy 15:19 Leeroy Gilbert MD is Referral Physician. samy 15:54 No provider procedures requiring assistance completed. IV discontinued, intact, jw7 bleeding controlled, No redness/swelling at site. Pressure dressing applied. 15:55 Provided Education on: discharge instructions and medication usage. jw7 Administered Medications: 12:16 Drug: NS 0.9% IV 1000 ml IV at 1 bolus Per protocol; 1000 mL bolus Route: IV; Rate: 1 jl7 bolus; Site: left antecubital; 15:54 Follow up: Response: No adverse reaction; IV Status: Completed infusion; IV Intake: jw7 1000ml 13:38 Drug: foLIC Acid IVPB 1 mg IVPB once Route: IVPB; Site: left antecubital; hb 15:53 Follow up: Response: No adverse reaction; IV Status: Completed infusion jw7 15:54 Not Given (Patient Refused): [id number] mg PO once jw7 15:54 Not Given (Patient Refused): Decadron - [id number] mg IVP once jw7 15:54 Not Given (Patient Refused): [id number] mg IVP once jw7 Medication: 13:27 VIS not applicable for this client. hb Intake: 15:54 IV: 1000ml; Total: 1000ml. jw7 Outcome: 15:20 Discharge ordered by MD. samy 15:54 Discharged to home ambulatory, with family, jw7 15:54 Condition: stable 15:54 Discharge instructions given to patient, Instructed on discharge instructions, follow up and referral plans. medication usage, Demonstrated understanding of instructions, follow-up care, medications, Prescriptions given X 6 15:56 Patient left the ED. jw7 NIH Stroke Scale - NIH Stroke Score Date: 07/28/2023 Time: 12:15 Total Score = 0 10. Dysarthria (speech clarity - read or repeat words) - 0(Normal) 11. Extinction and Inattention (visual/tactile/auditory/spatial/personal) - 0(No abnormality) 1a. Level of Consciousness (LOC) - 0(Alert) 1b. Level of Consciousness (LOC) (Month \T\ Age) - 0(Both) 1c. LOC Commands (Open \T\ Closes Eyes/Pre School Teacher) - 0(Both) 2. Best Gaze (Lateral Gaze Paresis) - 0(Normal) 3. Visual Field Loss - 0(No visual loss) 4. Facial Palsy - 0(Normal) 5a. Left Arm: Motor (10-second hold) - 0(No drift) 5b. Right Arm: Motor (10-second hold) - 0(No drift) 6a. Left Leg: Motor (5-second hold - always test supine) - 0(No drift) 6b. Right Leg: Motor (5-second hold - always test supine) - 0(No drift) 7. Limb Ataxia (finger/nose \T\ heel/tobin - test with eyes open) - 0(Absent) 8. Sensory Loss (pinprick arms/legs/face) - 0(Normal) 9. Best Language: Aphasia (description/naming/reading) - 0(No aphasia) Initials: NIH Stroke Scale - NIH Stroke Score Date: 07/28/2023 Time: 15:11 Total Score = 0 10. Dysarthria (speech clarity - read or repeat words) - 0(Normal) 11. Extinction and Inattention (visual/tactile/auditory/spatial/personal) - 0(No abnormality) 1a. Level of Consciousness (LOC) - 0(Alert) 1b. Level of Consciousness (LOC) (Month \T\ Age) - 0(Both) 1c. LOC Commands (Open \T\ Closes Eyes/Pre School Teacher) - 0(Both) 2. Best Gaze (Lateral Gaze Paresis) - 0(Normal) 3. Visual Field Loss - 0(No visual loss) 4. Facial Palsy - 0(Normal) 5a. Left Arm: Motor (10-second hold) - 0(No drift) 5b. Right Arm: Motor (10-second hold) - 0(No drift) 6a. Left Leg: Motor (5-second hold - always test supine) - 0(No drift) 6b. Right Leg: Motor (5-second hold - always test supine) - 0(No drift) 7. Limb Ataxia (finger/nose \T\ heel/tobin - test with eyes open) - 0(Absent) 8. Sensory Loss (pinprick arms/legs/face) - 0(Normal) 9. Best Language: Aphasia (description/naming/reading) - 0(No aphasia) Initials: samy Signatures: Dispatcher [employer] Ashwin Roe MD MD cha Baxter, Heather, RN RN Tiffany Caceres RN RN jl7 Lily Delarosa RN RN jw7 Michelle Purvis RN RN jj7 Karolina Muñoz PAS PAS ts1
[2023-07-28 16:40] VITALS: TEMP 98.2
[2023-07-28 17:06] VITALS: BP 126/78; O2SAT 95
== END ==
LOC: ER 11:50
DX: M50.10 Cervical disc disorder with radiculopathy, unspecified cervical region (principal); I10 Essential (primary) hypertension; E66.9 Obesity, unspecified; Z68.31 Body mass index [BMI] 31.0-31.9, adult
CPT/HCPCS: 96365; 96361; 85025; 81001; 80048; 36415; 83735; 85610; 80076; 84484; 83880; 86140; 70450; 72125; 70496; 70498; 71045; 99285; 96366; Q9967; J7030; 93005